=== PATIENT | male | born 1960 | race African-American/Black ===

== ENCOUNTER 2016-10-31 13:54 | Emergency (ER) | payer OTHER ==
[~2016-10-31] VITALS: Ht 185.4 cm; Wt 80.7 kg
--- NOTE | ~2016-10-31 | HC ---
[facility] [address] [address] CONSULTATION Name: JAYSHREE CRANE Room #: DEP Beatris#: [id number] Admission: 10/31/16 Attend Phys: Discharge: 10/31/16 Date of : 64 Report #: [id number] THIS REPORT FOR: //name// CC: [facility] CHIEF COMPLAINT: Left shoulder dislocation. 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 He relates the first dislocation was in approximately 1985. He has had about 7 since that time. His most recent one before this occasion was 3 years ago. He was getting out of his bed, slipped, fell, put his arm out over head and felt the shoulder go out. Attempts to reduction was performed by the ER physician and unfortunately, it did not reduce. So, I was consulted to help with placing his shoulder back into position. PAST MEDICAL HISTORY: Unremarkable. MEDICATIONS: He relates he takes no medications. PHYSICAL EXAMINATION: Examination of his left upper extremity demonstrates he is able to hostess cashier, extend the and extend the thumb. Sensation is intact in the hand to light touch. Radial pulse is full. He has obvious depression over the acromion. DIAGNOSTIC DATA: X-rays of the left shoulder demonstrate an anterior inferior dislocation. IMPRESSION: Left shoulder dislocation. PLAN: With Dr. Priest's help with sedation, a manual reduction was performed. The shoulder appeared to be in good position as I could place his hand on his opposite shoulder. The shoulder otherwise was put into position at the time of this dictation. Post-reduction x-rays are pending. We will append the dictation if the x-ray does not indicate the shoulder reduced. We will plan to have the patient follow up in approximately one week. <ELECTRONICALLY SIGNED> By: Aaron Haro MD 11/01/162009 [id number] Aaron Haro MD /nt
[~2016-10-31 13:54] MED LIST: ASPIR 8181 MG PO; ATIVAN1 MG PO; CIPROFLOXACIN500 M1 PO; FLOMAX0.4 MG PO; HYDROCODONE-AP1 EAC6 PO; IBUPROFEN 800800 MG PO; MECLIZINE 25 MG25 M1 PO; MECLIZINE HCL12.5 MG PO; NOHOMEMEDICATIONS; NORCO 5-325 TA1 EACH PO; PENICILLIN V P500 MG PO; ZOFRAN 4 MG ORAL4 M1 DIS; ZOFRAN ODT4 MG PO
[2016-10-31] MEDS ORDERED: TYLENOL325 MG PO (13:57)
[2016-10-31] MEDS ORDERED: DELSYM30 MG/5 M1 PO (13:57)
[2016-10-31] MEDS ORDERED: NORCO 5-325 TA1 EACH PO (20:05)
[2016-10-31 20:26] VITALS: BP 138/60
== END 2016-10-31 20:30 | disposition home or self-care (01) ==
LOC: ER 13:54
DX: S43.005A Unspecified dislocation of left shoulder joint, initial encounter (principal); W06.XXXA Fall from bed, initial encounter; Y93.89 Activity, other specified; Y92.89 Other specified places as the place of occurrence of the external cause; Y99.8 Other external cause status